=== PATIENT | female | born 1930 | race Caucasian/White ===

== ENCOUNTER → 2020-07-05 | Outpatient (CLI) | payer BC, MEDICARE | END | disposition home or self-care (01) | LOC: CVU 12:12 | PROVIDERS: ATTEND Internal Medicine Clinical Cardiac Electrophysiology | DX: I08.0 Rheumatic disorders of both mitral and aortic valves (principal); I65.23 Occlusion and stenosis of bilateral carotid arteries; I70.203 Unspecified atherosclerosis of native arteries of extremities, bilateral legs; I70.213 Atherosclerosis of native arteries of extremities with intermittent claudication, bilateral legs; Z87.891 Personal history of nicotine dependence | CPT/HCPCS: 93306; 93880; 93922; 93925 ==